=== PATIENT | male | born 1940 ===

== ENCOUNTER 2022-05-15 15:09 | Emergency (ER) | payer SELFPAY ==
[2022-05-15 15:52] VITALS: BP 136/62; PULSE 70; RESP 18; TEMP 36.7; O2SAT 98; BMI 20.9
[2022-05-15 16:01] LABS: Glucose, Whole Blood 262 mg/dL (60-115)
== END 2022-05-15 17:42 | disposition left against medical advice (07) ==
PROVIDERS: Emergency Provider Emergency Medicine
DX: Z76.0 Encounter for issue of repeat prescription (principal); E11.9 Type 2 diabetes mellitus without complications
CPT/HCPCS: 82947; 99282